=== PATIENT | female | born 1955 | race Caucasian/White ===

== ENCOUNTER 2020-10-01 11:19 | Emergency (ER) | payer OTHER ==
[~2020-10-01] VITALS: Ht 157.5 cm; Wt 59.0 kg
[2020-10-01 11:57] VITALS: Ht 157.5 cm; Wt 59.0 kg
[2020-10-01 13:46] VITALS: BP 109/65
== END 2020-10-01 13:47 | disposition home or self-care (01) ==
LOC: ED 11:19
DX: S52.501A Unspecified fracture of the lower end of right radius, initial encounter for closed fracture (principal); S52.611A Displaced fracture of right ulna styloid process, initial encounter for closed fracture; V49.49XA Driver injured in collision with other motor vehicles in traffic accident, initial encounter; Y93.I9 Activity, other involving external motion; Y92.488 Other paved roadways as the place of occurrence of the external cause; Y99.8 Other external cause status
CPT/HCPCS: J2001; Q0092